=== PATIENT | female | born 1970 ===

== ENCOUNTER 2023-02-07 09:01 | Outpatient (CLI) | payer BC, SELFPAY ==
--- NOTE | ~2023-02-07 | XR_ITS ---
EXAMINATION: [id number] DATE: 02/07/2023 09:22 INDICATION: Right knee pain TECHNIQUE: Two views of the right knee were obtained. COMPARISON: None. FINDINGS: Alignment is normal. No fracture or osteochondral lesion. There is moderate osteoarthritis of the medial and patellofemoral compartments. No joint effusion/synovitis. Soft tissues are unremar kable. IMPRESSION: 1. Osteoarthritis without acute osseous abnormality. Reviewed, dictated and finalized at location [facility]
== END 2023-02-07 09:02 ==
LOC: MICIMG 09:07
PROVIDERS: PCP Nurse Practitioner Family; Visit Provider Nurse Practitioner Family
DX: M17.11 Unilateral primary osteoarthritis, right knee (principal)
CPT/HCPCS: 73560